=== PATIENT | male | born 1960 | race Caucasian/White ===

== ENCOUNTER 2024-02-05 09:14 | Day surgery (SDC) | payer OTHER ==
[2024-02-01 15:06] VITALS: BMI 27.2
[2024-02-05] MEDS ORDERED: Sevoflurane 250 ML INH ANEST BOTTLE ONE (09:51)
[2024-02-05] MEDS ORDERED: Bupivacaine PF 0.5% 30 ML VIAL ONE (09:53)
[2024-02-05] MEDS ORDERED: Lidocaine 1% PF 5 ML VIAL ONE (09:57)
[2024-02-05] MEDS ORDERED: Ondansetron PF 4 MG/2 ML Vial ONE (09:57)
[2024-02-05] MEDS ORDERED: PROPOFOL 20 ML ONE (09:57)
[2024-02-05] MEDS ORDERED: fentaNYL 50 mcg/mL 1 mL Vial ONE (09:57)
[2024-02-05 10:05] LABS: Anion Gap 17 mmol/L (10-20); BUN (Urea Nitrogen) 14 mg/dL (8.4-25.7); Calc. Creatinine Clearance 87 mL/min (70-130); Calcium 10.1 mg/dL (7.8-10.44); Carbon Dioxide 24 mmol/L (23-31); Chloride 101 mmol/L (98-107); Estimated GFR 79; Glucose 78 mg/dL (80-115); Potassium 3.6 mmol/L (3.5-5.1); Sodium 138 mmol/L (136-145)
[2024-02-05] MEDS ORDERED: CEFAZOLIN 2 GM VIAL ONE (10:08)
[2024-02-05] MEDS ORDERED: Glycopyrrolate 0.2 MG/ML 5 ML SYRINGE ONE (10:52)
== END 2024-02-05 12:53 | disposition home or self-care (01) ==
LOC: CSHSDC 09:14
PROVIDERS: ATTEND Podiatrist Foot & Ankle Surgery
PROC: 0QTN0ZZ Resection of Right Metatarsal, Open Approach (ICD-10-PCS; principal; 2024-02-05)
DX: E11.621 Type 2 diabetes mellitus with foot ulcer (principal); L97.511 Non-pressure chronic ulcer of other part of right foot limited to breakdown of skin; E11.65 Type 2 diabetes mellitus with hyperglycemia; I10 Essential (primary) hypertension; E78.5 Hyperlipidemia, unspecified; K21.9 Gastro-esophageal reflux disease without esophagitis; E03.9 Hypothyroidism, unspecified; G47.33 Obstructive sleep apnea (adult) (pediatric); J45.909 Unspecified asthma, uncomplicated; Z90.49 Acquired absence of other specified parts of digestive tract; Z90.89 Acquired absence of other organs; Z87.891 Personal history of nicotine dependence; Z79.84 Long term (current) use of oral hypoglycemic drugs; Z79.85 Long-term (current) use of injectable non-insulin antidiabetic drugs; Z79.51 Long term (current) use of inhaled steroids; Z79.4 Long term (current) use of insulin; Z79.899 Other long term (current) drug therapy
CPT/HCPCS: 36415; 80048; 93005; 93010; J0665; J2405; J2704; J3010